=== PATIENT | female | born 1955 | race Two or more races ===

== ENCOUNTER 2019-11-09 13:50 | Emergency (ER) | payer SELFPAY ==
[~2019-11-09] VITALS: Ht 170.2 cm; Wt 92.1 kg
--- NOTE | 2019-11-09 14:25 | NUR ---
PT PRESENTED TO THE ER WITH MIDSTERNAL CHEST PAIN. PT HAS HX OF CHRONIC LUNG ISSUES AND A POLYP. PT IS KITTITIAN SPEAKING ONLY. PT IS ON THE MONITOR AND CONTINUOUS PULSE OX. PT IS AMBULATORY WITH A STEADY GAIT. 18G IV STARTED IN LAC. BLOOD WAS DRAWN AND SENT TO LAB.
[2019-11-09 14:38] LABS: BASOPHILS % (AUTO) 0.7 % (0.0-2.0); EOSINOPHILS % (AUTO) 2.1 % (0.0-6.0); HEMATOCRIT 35 % (33-45); HEMOGLOBIN 10.8 g/dL (11.5-14.8); LYMPHOCYTES # (AUTO) 1.8 /CMM (0.8-4.8); LYMPHOCYTES % (AUTO) 28.2 % (20.0-44.0); MEAN CORPUSCULAR HGB CONC 31 g/dl (31.0-36.0); MEAN CORPUSCULAR VOLUME 66 fL (82-100); MONOCYTES # (AUTO) 0.7 /CMM (0.1-1.30); MONOCYTES % (AUTO) 11.9 % (2.0-12.0); NEUTROPHILS # (AUTO) 3.6 /CMM (1.8-8.9); NEUTROPHILS % (AUTO) 57.1 % (43.0-81.0); PLATELET COUNT (AUTO) 217 /CMM (150-450); RED BLOOD CELL COUNT(AUTO) 5.27 MIL/uL (4.0-5.2); WHITE BLOOD COUNT (AUTO) 6.2 K/uL (4.3-11.0)
[2019-11-09 14:45] LABS: CALCIUM, SERUM 9.2 mg/dL (8.5-10.1); CARBON DIOXIDE 28 mmol/L (21-32); CHLORIDE 103 mmol/L (98-107); CREATININE 0.8 mg/dL (0.6-1.3); GLUCOSE 101 mg/dL (74-106); SODIUM SERUM 140 mmol/L (136-145); UREA NITROGEN, BLOOD 15 mg/dL (7-18)
[2019-11-09 14:51] LABS: ALANINE AMINOTRANSFERASE 26 U/L (12-78); ALBUMIN 3.7 g/dL (3.4-5.0); ALKALINE PHOSPHATASE 96 U/L (46-116); ASPARTATE AMINOTRANSFERASE 16 U/L (15-37); BILIRUBIN,DIRECT 0.1 mg/dL (0.0-0.2); BILIRUBIN,TOTAL 0.3 mg/dL (0.2-1.0); TOTAL PROTEIN, SERUM 7.9 g/dL (6.4-8.2)
[2019-11-09] MEDS ORDERED: ONDANSETRON HCL/PF 4 MG/2 ML VIAL IV ONE (15:30)
[2019-11-09] MEDS ORDERED: ONDANSETRON HCL/PF 4 MG/2 ML VIAL ONE (15:31)
--- NOTE | 2019-11-09 15:34 | NUR ---
PT C/O FEELING NAUSEATED. MD NOTIFIED. NEW ORDERS GIVEN AND CARRIED OUT.
--- NOTE | 2019-11-09 15:40 | NUR ---
PT REC'D A WARM BLANKET.
--- NOTE | 2019-11-09 16:30 | NUR ---
IV removed. Catheter intact and site benign. Pressure and 4x4 applied to site. No bleeding noted. Patient discharged to home in stable condition. Written and verbal after care instructions given. Patient verbalizes understanding of instruction. PT AMBULATED OUT WITH A STEADY GAIT. VSS. NAD NOTED.
[2019-11-09 16:39] VITALS: BP 137/80
== END 2019-11-09 16:40 | disposition home or self-care (01) ==
LOC: ER 13:55
DX: R06.02 Shortness of breath (principal); Z98.890 Other specified postprocedural states
CPT/HCPCS: 36415; 71045; 80048; 80076; 83880; 84484; 85025; 93005; 96374; 99285; J2405